=== PATIENT | female | born 1990 | race Caucasian/White ===

== ENCOUNTER 2017-01-18 08:35 | Emergency (ER) | payer BC ==
[~2017-01-18] VITALS: Ht 170.2 cm; Wt 95.3 kg
--- NOTE | 2017-01-18 09:30 | PD ---
HPI Travel History International Travel<30 Days: No Contact w/Intl Traveler<30Days: [place] of Country Traveled to: friend to [place] Known Affected Area: No History of Present Illness HPI This patient is a 26-year-old 1 para 0 EDC is March 26, 2017 presently at 30 weeks and 3 days she presents with the chief complaint of possible rupture of membranes She states she was awoken this morning at 2 AM felt wet between her legs she is coming in and be checked occasional tightening which has been going on throughout the soft left of blood on her underwear baby is active care with Dr. Henriquez course is unremarkable other than the baby is measuring big Patient admits to sexual intercourse last night History Past Medical History Narrative Medical No known drug allergies no major medical problems Obstetric History Obstetric History First Past Surgical History Surgical History: No Previous Surgery Family History Family History: Negative Social History Alcohol Use: No Tobacco Use: No Substance Abuse: No Allergies-Medications (Allergen,Severity, Reaction): Coded Allergies: No Known Allergies (Unverified , 01/18/17) Review of Systems Gastrointestinal: Abdominal Pain (occasional tightening as per history of present illness) Genitourinary: Discharge (watery discharge) Physical Exam Narrative GENERAL: Well-nourished, well-developed patient. Alert oriented 3 and cooperative in no acute distress CARDIOVASCULAR: Regular rate and rhythm without murmurs, gallops, or rubs. RESPIRATORY: Breath sounds equal bilaterally. No accessory muscle use. ABDOMEN/GI: Abdomen soft, non-tender, bowel sounds present, no rebound, no guarding consistent with 30 weeks soft no palpable contractions no epigastric or right upper quadrant tenderness Gravid to [-] weeks size 30 weeks Fundal Height: [-] GENITOURINARY: Speculum exam is done no gross fluid seen thin white discharge amnisure is negative External Genitalia: intact and normal in appearance BUS glands: [-] Cervix: [-] Posterior Dilatation: [-] Closed Effacement: [-] Station: [-] Ballotable Presentation: [-] Vertex Membranes: [intact Uterine Contractions: [-]0 FHT's: Category: [-] 1 Baseline: [-] 140 Reactive: [-] + Variability: [-] Moderate Decels: [-] 0 EXTREMITIES: No cyanosis or edema. NEUROLOGICAL: Awake and alert. Motor and sensory grossly within normal limits. Five out of 5 muscle strength in all muscle groups. Normal speech. Data Data Vital Signs Reviewed: Yes (blood pressures 124/73 pulse is 95) Orders Vital Signs (Adult) .ON ADMISSION (01/18/17 09:21) [facility] Medical Record Reviewed: No (no records available) Interpretation(s) 26-year-old 1 para 0 at 30 weeks and 3 days No clinical evidence of ruptured membranes Not in labor Plan After appropriate monitoring Discharge home Signs of labor reviewed kick count Keep appointment with Dr. Henriquez on Physician Communication Spoke with Dr. Ibrahim She agrees with evaluation and management Tracing reviewed with Dr. Ibrahim she agrees with discharge Diagnosis Diagnosis: Primary Impression: Suspected problem with amniotic cavity and membrane not found Additional Impression: Premature of fewer than 30 weeks gestation Disposition: 01 DISCHARGE HOME Condition: Stable Dilcia Genao MD Jan 18, 2017 09:30
== END 2017-01-18 10:03 | disposition home or self-care (01) ==
LOC: HOBED 08:35
DX: O26.893 Other specified pregnancy related conditions, third trimester (principal); Z3A.30 30 weeks gestation of pregnancy
CPT/HCPCS: 84112; 99283

== ENCOUNTER 2017-04-04 18:28 | Inpatient (IN) | payer BC ==
[~2017-04-04] VITALS: Ht 170.2 cm; Wt 97.7 kg
[2017-04-04 20:24] VITALS: BP 142/93; PULSE 99; TEMP 98.3
[2017-04-04 20:30] VITALS: RESP 18
[2017-04-04] MEDS ORDERED: LACTATED RINGER'S 1000 ML BOLUS IV PRN (20:30)
[2017-04-04] MEDS ORDERED: NS 1000 ML IV PRN (20:30)
[2017-04-04] MEDS ORDERED: NS 500 ML BOLUS IV PRN (20:30)
[2017-04-04] MEDS: LACTATED RINGER'S 1000 ML IV SCH (20:30)
[2017-04-04] MEDS: LACTATED RINGER'S 1000 ML INJ 1,000 ML IV SCH (20:45)
[2017-04-04] MEDS ORDERED: CITRIC ACID-SODIUM CITRATE LIQ 30 ML UDC PO SCH (20:45)
[2017-04-04] MEDS ORDERED: LIDOCAINE HCL 1% 50 ML VIAL INFIL PRN (20:45)
[2017-04-04] MEDS ORDERED: ONDANSETRON HCL 4 MG/2 ML VIAL IV PRN (20:45)
[2017-04-04] MEDS ORDERED: LIDOCAINE HCL 1% 50 ML VIAL I-DERMAL PRN (20:45)
[2017-04-04] MEDS ORDERED: DINOPROSTONE 10 MG INSERT - REMOVE AT 0600 VAGINAL ONE (20:45)
[2017-04-04] MEDS ORDERED: MINERAL OIL 10 ML VIAL TOPICAL PRN (20:45)
[2017-04-04] MEDS ORDERED: OXYTOCIN 30 UNITS 500ML PREMIX IV ONE (20:45)
[2017-04-04] MEDS ORDERED: NS 1000 ML OTHER PRN (20:45)
[2017-04-04 22:08] LABS: BACTERIA, URINE MOD /hpf; BLOOD, URINE NEG (NEG); CALCIUM OXALATE CRYSTALS,URINE RARE /hpf; COMMENT (UR) CULTURE INDICATED; CULTURE IF INDICATED CULTURE INDICATED; GLUCOSE,URINE 300 mg/dL (NEG); KETONE, URINE 10 mg/dL (NEG); MUCUS URINE FEW /lpf (OCC); NITRITE,URINE NEG (NEG); SQUAMOUS EPITHELIAL CELL URINE 2 /hpf (0-5); URIC ACID CRYSTALS, URINE RARE /hpf; URINE COLOR YELLOW (YELLW/STRAW)
[2017-04-04 22:28] LABS: AUTOMATED NEUTROPHIL # 11.4 TH/MM3 (1.8-7.7); BASOPHIL % 0.3 % (0.0-2.0); EOSINOPHIL # 0.1 TH/MM3 (0-0.4); EOSINOPHIL % 0.6 % (0.0-4.0); HEMATOCRIT 37.2 % (35.0-46.0); HEMO FLAGS DIFF FINAL; LYMPH % 12.8 % (9.0-44.0); LYMPHOCYTE # 1.8 TH/MM3 (1.0-4.8); MEAN CELL VOLUME 86.1 FL (80.0-100.0); MEAN CORPUSCULAR HEMOGLOBIN 29.2 PG (27.0-34.0); MEAN CORPUSCULAR HGB CONC 33.9 % (32.0-36.0); MONO % 4.5 % (0.0-8.0); NEUT % 81.8 % (16.0-70.0); PLATELET COUNT 318 TH/MM3 (150-450); RED BLOOD COUNT 4.32 MIL/MM3 (4.00-5.30); WHITE BLOOD COUNT 13.9 TH/MM3 (4.0-11.0)
[2017-04-04 22:59] VITALS: BP 142/97; PULSE 91; RESP 18; TEMP 98.3
[2017-04-04 23:24] LABS: ALT (GPT) 18 U/L (10-53); ANION GAP 13 MEQ/L (5-15); AST (GOT) 9 U/L (15-37); BICARBONATE 20.6 MEQ/L (21.0-32.0); BLOOD UREA NITROGEN 9 MG/DL (7-18); CHLORIDE 106 MEQ/L (98-107); GLOMERULAR FILTRATION RATE 155 ML/MIN (>89); POTASSIUM 3.1 MEQ/L (3.5-5.1); SODIUM (NA) 140 MEQ/L (136-145)
[2017-04-04 23:26] LABS: ALKALINE PHOSPHATASE 167 U/L (45-117); TOTAL BILIRUBIN ADULT 0.2 MG/DL (0.2-1.0)
[2017-04-05] VITALS (85 sets, daily range): BP systolic 104–218; BP diastolic 53–190; PULSE 75–147; RESP 16–20; TEMP 97.6–99.4; O2SAT 97
[2017-04-05] MEDS ORDERED: OXYTOCIN 30 UNITS-500ML PREMIX 500 ML ONE (06:52)
[2017-04-05] MEDS ORDERED: OXYTOCIN 30 UNITS/NS 500ML PREMIX IV SCH (10:00)
[2017-04-05] MEDS ORDERED: fentaNYL 2MCG-BUPIV 0.125% INJ 100 ML ONE (10:21)
[2017-04-05] MEDS ORDERED: NIFEdipine 10 MG CAP PO ONE (10:30)
[2017-04-05] MEDS: LACTATED RINGER'S 1000 ML INJ 1,000 ML IV SCH ×2 (10:30→12:45)
[2017-04-05] MEDS ORDERED: NIFEdipine 30 MG SUSTAINED RELEASE TAB PO ONE (11:45)
[2017-04-05] MEDS: LACTATED RINGER'S 1000 ML IV SCH ×4 (12:30→20:30)
[2017-04-05] MEDS ORDERED: NO SYSTEM NARCOTICS PRN (14:45)
[2017-04-05] MEDS ORDERED: ePHEDrine/NS 25 MG/5 ML SYR IV PRN (14:45)
[2017-04-05] MEDS ORDERED: DO NOT ADMINISTER ANTICOAGULANTS PRN (14:45)
[2017-04-05] MEDS: fentaNYL 2MCG-BUPIV 0.125% 100 ML EPIDURAL SCH ×2 (16:32→17:56)
[2017-04-05] MEDS ORDERED: LACTATED RINGER'S 1000 ML IV ONE (20:15)
[2017-04-05] MEDS ORDERED: ceFAZolin 2 GM PREMIX 50 ML IV SCH (20:15)
[2017-04-05] MEDS ORDERED: OXYTOCIN 10 UNIT/ML AMP ONE (20:25)
--- NOTE | 2017-04-05 20:35 | PD.LABORPN ---
Subjective Subjective pain controlled with epidural Objective Vital Signs Vital Signs Date Time Temp Pulse Resp B/P (MAP) Pulse Ox O2 Delivery O2 Flow Rate FiO2 04/05/17 17:56 16 04/05/17 15:45 18 04/05/17 15:40 108 04/05/17 15:35 101 04/05/17 15:30 104 131/71 (91) 04/05/17 15:25 105 04/05/17 15:20 121 04/05/17 15:15 111 04/05/17 15:10 111 04/05/17 15:05 107 04/05/17 15:00 109 141/83 (102) 04/05/17 14:40 104 04/05/17 14:35 98 04/05/17 14:30 98 04/05/17 14:30 99 130/85 (100) 04/05/17 14:14 17 04/05/17 14:10 100 04/05/17 14:00 108 04/05/17 13:41 18 04/05/17 13:40 134/82 (99) 04/05/17 13:40 118 04/05/17 13:35 119 135/78 (97) 04/05/17 13:35 99 04/05/17 13:31 107 134/67 (89) 04/05/17 13:30 110 04/05/17 13:25 108 04/05/17 13:21 108 128/83 (98) 04/05/17 13:20 104 04/05/17 13:15 99 135/77 (96) 04/05/17 13:15 108 04/05/17 12:40 103 132/78 (96) 04/05/17 12:40 115 04/05/17 12:35 110 139/77 (97) 04/05/17 12:35 108 04/05/17 12:30 101 04/05/17 12:30 121 147/84 (105) 04/05/17 12:25 95 125/70 (88) 04/05/17 12:25 93 Objective Pelvic Exam: Cervix: [-] /-2 Dilatation: [-] Effacement: [-] Station: [-] Presentation: [-] vtx Membranes: [intact or ruptured] Uterine Contractions: [-] FHT's: Category: [-] 1 Baseline: [-] 140s Reactive: [-] Variability: [-] Decels: [-] Weeks Gestation: 41 Gest Age Assessed Date: Apr 05, 2017 Gest Age Assessed Time: 09:36 Pt started active labor?: Yes Active labor start date: Apr 05, 2017 Active labor start time: 09:30 Medical induction of labor?: Yes Medical induction start date: Apr 04, 2017 Medical induction start time: 18:00 Artificial rupture of membrane: Yes Artificial ROM date: Apr 05, 2017 Artifical ROM time: 09:56 Assessment/Plan Problem List: (1) Gestational hypertension ICD Codes: O13.9 - Gestational [-induced] hypertension without significant proteinuria, unspecified trimester Status: Acute Qualifiers: Qualified Codes: O13.3 - Gestational [-induced] hypertension without significant proteinuria, third trimester (2) Failure of descent in labor, delivered, current hospitalization ICD Codes: O62.2 - Other uterine inertia Plan: reviewed need for primary . r/b/alt reviewed. all questions answered. Katlin Ibrahim MD Apr 05, 2017 20:35
[2017-04-05] MEDS ORDERED: MORPHINE SULFATE PF 5 MG/10 ML VIAL ONE (21:37)
[2017-04-05] MEDS ORDERED: ONDANSETRON HCL 4 MG/2 ML VIAL ONE (21:37)
[2017-04-05] MEDS ORDERED: SIMETHICONE 80 MG CHEWABLE TAB PO PRN (21:45)
[2017-04-05] MEDS ORDERED: OXYTOCIN 10 UNIT/ML AMP XX PRN (21:45)
[2017-04-05] MEDS ORDERED: OXYTOCIN 30 UNITS-500ML PREMIX 500 ML IV ONE (21:45)
[2017-04-05] MEDS ORDERED: ZOLPIDEM TARTRATE 5 MG TAB PO PRN (21:45)
[2017-04-05] MEDS ORDERED: oxyCODONE/ACETAMINOPHEN 5 MG/325 MG TAB PO PRN ×2 (21:45)
[2017-04-05] MEDS ORDERED: SODIUM CHLORIDE 0.9% FLUSH 10 ML FLUSH IV FLUSH PRN (21:45)
[2017-04-05] MEDS ORDERED: KETOROLAC TROMETHAMINE 60 MG/2 ML (IM) VIAL IM PRN ×2 (21:45)
[2017-04-05] MEDS ORDERED: OXYTOCIN 10 UNIT/ML AMP XX ONE (21:45)
[2017-04-05] MEDS ORDERED: ACETAMINOPHEN 1000 MG/100 ML VIAL IV ONE (21:45)
[2017-04-05] MEDS ORDERED: ONDANSETRON HCL 4 MG/2 ML VIAL IV PUSH PRN (21:45)
[2017-04-05] MEDS ORDERED: LIDOCAINE 2%/EPINEPHrine PF 1:200,000 20ML SDV OTHER ONE (21:57)
[2017-04-05] MEDS ORDERED: LACTATED RINGER'S 1,000 ML BAG IV ONE (21:58)
[2017-04-05] MEDS ORDERED: EPIDURAL-DIPHENHYDRAMINE HCL 50 MG CAP PO PRN (22:00)
[2017-04-05] MEDS ORDERED: EPIDURAL-DO NOT ADMINISTER ANTICOAGULANTS PRN (22:00)
[2017-04-05] MEDS ORDERED: EPIDURAL-NALOXONE HCL 0.4 MG/ML AMP IV PRN (22:00)
[2017-04-05] MEDS ORDERED: EPIDURAL-NO SYSTEMIC NARCOTICS PRN (22:00)
[2017-04-05] MEDS ORDERED: ACETAMINOPHEN 1000 MG/100 ML VIAL ONE (22:00)
[2017-04-05] MEDS ORDERED: EPIDURAL-DIPHENHYDRAMINE HCL 50 MG/ML VIAL IV PUSH PRN (22:00)
[2017-04-06 01:23] VITALS: BP 127/68; PULSE 101; RESP 18; TEMP 98.1
[2017-04-06] MEDS ORDERED: LACTATED RINGER'S 1000 ML INJ 1,000 ML IV SCH (02:41)
[2017-04-06 05:20] VITALS: BP 112/62; PULSE 103; RESP 18; TEMP 98.7
[2017-04-06 05:34] LABS: AUTOMATED NEUTROPHIL # 20.9 TH/MM3 (1.8-7.7); BASOPHIL # 0.1 TH/MM3 (0-0.2); BASOPHIL % 0.2 % (0.0-2.0); HEMATOCRIT 35.2 % (35.0-46.0); HEMO FLAGS DIFF FINAL; LYMPH % 5.7 % (9.0-44.0); LYMPHOCYTE # 1.3 TH/MM3 (1.0-4.8); MEAN CELL VOLUME 86.5 FL (80.0-100.0); MEAN CORPUSCULAR HEMOGLOBIN 28.9 PG (27.0-34.0); MEAN CORPUSCULAR HGB CONC 33.4 % (32.0-36.0); MONO % 3.7 % (0.0-8.0); NEUT % 90.4 % (16.0-70.0); PLATELET COUNT 287 TH/MM3 (150-450); RED BLOOD COUNT 4.07 MIL/MM3 (4.00-5.30); RED CELL DISTRIBUTION WIDTH 14.4 % (11.6-17.2); WHITE BLOOD COUNT 23.2 TH/MM3 (4.0-11.0)
[2017-04-06] MEDS: IBUPROFEN 600 MG TAB PO PRN ×2 (05:50→15:44)
[2017-04-06] MEDS ORDERED: OXYTOCIN 30 UNITS-500ML PREMIX 500 ML IV PRN (07:45)
--- NOTE | 2017-04-06 07:56 | MP ---
cc: ZHUBRENDA DATE OF SURGERY: 04/05/2017 PREOPERATIVE DIAGNOSIS 1. Intrauterine at 41+ weeks gestation. 2. Gestational hypertension. 3. Induction of labor. 4. Arrest of descent. POSTOPERATIVE DIAGNOSIS 1. Intrauterine at 41+ weeks gestation. 2. Gestational hypertension. 3. Induction of labor. 4. Arrest of descent. 5. Delivery of a viable male in the occiput posterior presentation. PROCEDURE Primary low transverse section. ANESTHESIA Epidural. DRAINS Kelly to gravity. SPECIMEN Cord blood. COUNTS Correct x2. DISPOSITION Stable in the PACU INDICATION The patient is a 27-year-old, 1, para 0, who presented for induction of labor. The patient received Cervidil followed by Pitocin. The patient quickly progressed to complete; however, was allowed to labor down for approximately an hour and a half and then pushed for nearly 2 hours; however, the vertex did not descend beyond -2 station. Given this the patient was consented for a primary low transverse section. DETAILS OF PROCEDURE Her epidural was re-bolused to accommodate the . A Pfannenstiel skin incision was made approximately two fingerbreadths above the pubic symphysis and carried down to the underlying layer of fascia using Bovie. The fascia was incised in the midline and the incision extended laterally digitally. Klaudia clamps were used to elevate the fascia and rectus muscles were dissected off superiorly and inferiorly. The rectus muscles were in the midline and the peritoneum was tented up and entered sharply. There was a small amount of fluid that was encountered and this was suspicious as to whether it could have been an incidental cystotomy. It did not appear the Kelly catheter was draining well at this point as no urine could be visualized in the bag. A bladder blade was then inserted and surgery was continued. The vesicouterine peritoneum was identified, tented up and entered sharply. The bladder blade was then reinserted. A transverse incision was made on the lower uterine segment just exposing membranes. These were ruptured for clear fluid. The uterine incision was extended laterally digitally. The vertex was noted to be wedged down into the pelvis somewhat. Suction was broken and the vertex was delivered in the occiput posterior presentation. There was noted to be a body cord that was easily reduced as well. Delayed cord clamping was done. Cord blood was obtained. The placenta was removed manually intact with a three-vessel cord and sent for placenta donation. Given the bulky size of the uterus it was difficult to exteriorize. The uterus was cleared of all clot and debris. The uterine incision was repaired using one chromic suture in a running locked fashion. The second layer was placed in an imbricating fashion. After the uterine incision was closed it should be noted that the Kelly catheter was then clamped and retrograde filled with sterile milk. There was no evident cystotomy. The clamp was then removed and by the end of the case the Kelly catheter did have clear yellow urine in it. Once this was done the gutters cleared of all clot and debris. The uterine incision remained hemostatic. The rectus muscles were re-approximated using 0 chromic suture in an interrupted fashion. The fascia was re-approximated using 0 Vicryl suture in a running fashion. The subcutaneous fat was irrigated and made hemostatic, re-approximated using 3-0 chromic and the skin was closed using 3-0 Monocryl suture in a subcuticular fashion. Once this was done all counts were correct and the patient was awakened and taken to the recovery room in stable condition. MD REJI Crenshaw/BT /12:05 AM /7:32 AM MTDJuan
[2017-04-06 08:40] VITALS: BP 109/72; PULSE 103; RESP 18; TEMP 98.2
[2017-04-06 12:27] VITALS: BP_SYST 110; BP_SYST 112; BP_DIAS 67; BP_DIAS 72; PULSE 109; RESP 18; TEMP 98.2
[2017-04-06 15:40] VITALS: BP 111/63; PULSE 97; RESP 18; TEMP 98.4
[2017-04-06] MEDS: DOCUSATE SODIUM 50 MG/SENNA 8.6 MG TAB PO PRN (15:44)
[2017-04-06] MEDS ORDERED: DIPHTH/TETANUS/ACEL PERTUSSIS (BOOSTER) 0.5 ML VIAL/PFS IM ONE (16:00)
[2017-04-06] MEDS ORDERED: MEASLES, MUMPS, RUBELLA VACCINE 0.5 ML VIAL SQ ONE (16:00)
[2017-04-06] MEDS: LACTATED RINGER'S 1000 ML IV SCH ×2 (19:53→22:55)
[2017-04-06] MEDS: LACTATED RINGER'S 1000 ML INJ 1,000 ML IV SCH (19:53)
[2017-04-06] MEDS: SODIUM CHLORIDE 0.9% FLUSH 10 ML FLUSH IV FLUSH SCH (20:20)
--- NOTE | 2017-04-06 22:04 | HHI.OB ---
Subjective Post Operative Day: 1 Remarks pain controlled, mod lochia, saurav po, +void/flatus Objective Vitals/I&O Vital Signs Date Time Temp Pulse Resp B/P (MAP) Pulse Ox O2 Delivery O2 Flow Rate FiO2 04/06/17 15:40 97 18 111/63 (79) 04/06/17 15:40 98.4 04/06/17 12:27 110/72 (85) 04/06/17 12:27 98.2 109 18 112/67 (82) 04/06/17 08:40 98.2 103 18 109/72 (84) 04/06/17 05:20 98.7 103 18 04/06/17 05:20 112/62 (79) 04/06/17 01:23 98.1 101 18 127/68 (87) 04/05/17 22:41 98.1 04/05/17 22:33 87 18 135/60 (85) 04/05/17 22:33 97 04/05/17 22:15 86 18 117/61 (79) Result Diagram: 04/06/17 0502 04/04/17 1900 Objective Remarks GENERAL: Well-nourished, well-developed patient. CARDIOVASCULAR: Regular rate and rhythm without murmurs, gallops, or rubs. RESPIRATORY: Breath sounds equal bilaterally. No accessory muscle use. ABDOMEN/GI: Abdomen soft, non-tender, bowel sounds present. Incision: Clean, dry and intact. Fundus: Firm, non-tender at umbilicus. GENITOURINARY: Light to moderate bleeding. EXTREMITIES: No cyanosis or edema, non-tender, without signs of DVT. Medications and IVs Current Medications Medications (Trade) Dose Ordered Sig/Candace Route Start Time Stop Time Status Last Admin Lactated Ringer's 1,000 ml @ 125 mls/hr Q8H IV 04/04/17 20:30 04/05/17 16:26 Lactated Ringer's 1,000 ml @ 3,000 mls/hr BOLUS PRN IV 04/04/17 20:30 Sodium Chloride 500 ml @ 1,000 mls/hr BOLUS PRN IV 04/04/17 20:30 Sodium Chloride 1,000 ml @ 100 mls/hr Q10H PRN IV 04/04/17 20:30 (Bicitra Liq) 30 ml STAMP PAD FINISHER PO 04/04/17 20:45 04/07/17 20:44 (Zofran Inj) 4 mg Q6H PRN IV 04/04/17 20:45 (fentaNYL INJ) 50 mcg Q1H PRN IV PUSH 04/04/17 20:45 04/05/17 09:28 (fentaNYL INJ) 100 mcg Q1H PRN IV PUSH 04/04/17 20:45 (Muri-Lube Oil) 10 ml UNSCH PRN TOPICAL 04/04/17 20:45 04/05/17 18:44 Lactated Ringer's 1,000 ml @ 125 mls/hr Q8H IV 04/04/17 20:45 04/05/17 10:30 Sodium Chloride 1,000 ml @ 0 mls/hr UNSCH PRN OTHER 04/04/17 20:45 Oxytocin 500 ml @ 0 mls/hr TITRATE IV 04/05/17 10:00 04/05/17 07:06 Fentanyl/ Bupivacaine HCl 100 ml @ 0 mls/hr TITRATE EPIDURAL 04/05/17 14:45 04/05/17 17:56 Lactated Ringer's 1,000 ml @ 150 mls/hr Q6H40M IV 04/05/17 20:15 Cefazolin Sodium/ Dextrose 50 ml @ 100 mls/hr STAMP PAD FINISHER IV 04/05/17 20:15 04/08/17 20:14 04/05/17 20:19 Lactated Ringer's 1,000 ml @ 100 mls/hr Q10H IV 04/06/17 02:41 04/06/17 22:40 Oxytocin 500 ml @ 100 mls/hr UNSCH X1 PRN IV 04/06/17 07:45 04/07/17 07:44 (NS Flush) 2 ml BID IV FLUSH 04/06/17 09:00 (NS Flush) 2 ml UNSCH PRN IV FLUSH 04/05/17 21:45 (Mylicon Chew) 80 mg QID PRN PO 04/05/17 21:45 (Motrin) 600 mg Q6H PRN PO 04/05/17 21:45 04/06/17 15:44 (Percocet 5-325 Mg) 1 tab Q4H PRN PO 04/05/17 21:45 (Percocet 5-325 Mg) 2 tab Q4H PRN PO 04/05/17 21:45 (Gladys-Colace) 2 tab Q12H PRN PO 04/05/17 21:45 04/06/17 15:44 (Ambien) 5 mg HS PRN PO 04/05/17 21:45 (Zofran Inj) 4 mg Q6H PRN IV PUSH 04/05/17 21:45 Assessment/Plan Problem List: (1) Gestational hypertension ICD Codes: O13.9 - Gestational [-induced] hypertension without significant proteinuria, unspecified trimester Status: Acute Qualifiers: Qualified Codes: O13.3 - Gestational [-induced] hypertension without significant proteinuria, third trimester Plan: bps stable without meds s/p delivery (2) Failure of descent in labor, delivered, current hospitalization ICD Codes: O62.2 - Other uterine inertia Plan: routine po care cbc stable Katlin Ibrahim MD Apr 06, 2017 22:04
[2017-04-06 22:05] VITALS: BP 102/69; PULSE 91; RESP 20; TEMP 98.8
[2017-04-07] MEDS: IBUPROFEN 600 MG TAB PO PRN ×2 (00:06→06:25)
[2017-04-07] MEDS: LACTATED RINGER'S 1000 ML IV SCH ×4 (04:30→12:30)
[2017-04-07] MEDS: LACTATED RINGER'S 1000 ML INJ 1,000 ML IV SCH ×2 (04:45→12:45)
[2017-04-07] MEDS: DOCUSATE SODIUM 50 MG/SENNA 8.6 MG TAB PO PRN (06:24)
[2017-04-07 08:10] VITALS: BP 113/69; PULSE 90; RESP 18; TEMP 97.9
[2017-04-07] MEDS: SODIUM CHLORIDE 0.9% FLUSH 10 ML FLUSH IV FLUSH SCH (09:00)
--- NOTE | 2017-04-07 09:09 | HHI.OB ---
Subjective Post Day: 2 Remarks doing well Objective Vitals/I&O Vital Signs Date Time Temp Pulse Resp B/P (MAP) Pulse Ox O2 Delivery O2 Flow Rate FiO2 04/06/17 22:05 98.8 91 20 102/69 (80) 04/06/17 15:40 97 18 111/63 (79) 04/06/17 15:40 98.4 04/06/17 12:27 110/72 (85) 04/06/17 12:27 98.2 109 18 112/67 (82) Objective Remarks GENERAL: Well-nourished, well-developed patient. ABDOMEN/GI: Abdomen soft, non-tender. Fundus: Firm, non-tender at umbilicus. GENITOURINARY: Light to moderate bleeding. EXTREMITIES: No cyanosis or edema, non-tender, without signs of DVT. Medications and IVs Current Medications Medications (Trade) Dose Ordered Sig/Candace Route Start Time Stop Time Status Last Admin Lactated Ringer's 1,000 ml @ 125 mls/hr Q8H IV 04/04/17 20:30 04/05/17 16:26 Lactated Ringer's 1,000 ml @ 3,000 mls/hr BOLUS PRN IV 04/04/17 20:30 Sodium Chloride 500 ml @ 1,000 mls/hr BOLUS PRN IV 04/04/17 20:30 Sodium Chloride 1,000 ml @ 100 mls/hr Q10H PRN IV 04/04/17 20:30 (Bicitra Liq) 30 ml CHANNEL ACCOUNT MANAGER PO 04/04/17 20:45 04/07/17 20:44 (Zofran Inj) 4 mg Q6H PRN IV 04/04/17 20:45 (fentaNYL INJ) 50 mcg Q1H PRN IV PUSH 04/04/17 20:45 04/05/17 09:28 (fentaNYL INJ) 100 mcg Q1H PRN IV PUSH 04/04/17 20:45 (Muri-Lube Oil) 10 ml UNSCH PRN TOPICAL 04/04/17 20:45 04/05/17 18:44 Lactated Ringer's 1,000 ml @ 125 mls/hr Q8H IV 04/04/17 20:45 04/05/17 10:30 Sodium Chloride 1,000 ml @ 0 mls/hr UNSCH PRN OTHER 04/04/17 20:45 Oxytocin 500 ml @ 0 mls/hr TITRATE IV 04/05/17 10:00 04/05/17 07:06 Fentanyl/ Bupivacaine HCl 100 ml @ 0 mls/hr TITRATE EPIDURAL 04/05/17 14:45 04/05/17 17:56 Lactated Ringer's 1,000 ml @ 150 mls/hr Q6H40M IV 04/05/17 20:15 Cefazolin Sodium/ Dextrose 50 ml @ 100 mls/hr CHANNEL ACCOUNT MANAGER IV 04/05/17 20:15 04/08/17 20:14 04/05/17 20:19 (NS Flush) 2 ml BID IV FLUSH 04/06/17 09:00 (NS Flush) 2 ml UNSCH PRN IV FLUSH 04/05/17 21:45 (Mylicon Chew) 80 mg QID PRN PO 04/05/17 21:45 (Motrin) 600 mg Q6H PRN PO 04/05/17 21:45 04/07/17 06:25 (Percocet 5-325 Mg) 1 tab Q4H PRN PO 04/05/17 21:45 (Percocet 5-325 Mg) 2 tab Q4H PRN PO 04/05/17 21:45 (Gladys-Colace) 2 tab Q12H PRN PO 04/05/17 21:45 04/07/17 06:24 (Ambien) 5 mg HS PRN PO 04/05/17 21:45 (Zofran Inj) 4 mg Q6H PRN IV PUSH 04/05/17 21:45 Assessment/Plan Problem List: (1) Gestational hypertension ICD Codes: O13.9 - Gestational [-induced] hypertension without significant proteinuria, unspecified trimester Status: Acute Qualifiers: Qualified Codes: O13.3 - Gestational [-induced] hypertension without significant proteinuria, third trimester Plan: bps stable without meds s/p delivery (2) Failure of descent in labor, delivered, current hospitalization ICD Codes: O62.2 - Other uterine inertia Plan: routine po care cbc stable Discharge Planning doing Nas Lezama MD Apr 07, 2017 09:08
--- NOTE | 2017-04-07 09:10 | HHI.DCPOC ---
Discharge Care Plan Diagnosis: (1) Failure of descent in labor, delivered, current hospitalization Report Symptoms to Your Doctor -Temperature above 100.5 degrees -Redness, of incision or excessive or foul smelling drainage -Unusual pain or calf pain -Increased vaginal bleeding -Painful or difficulty urinating -Feelings of extreme sadness or anxiety after 2 weeks Goals to Promote Your Health * To prevent worsening of your condition and complications * To maintain your health at the optimal level Directions to Meet Your Goals Take your medications as prescribed Follow your dietary instruction Follow activity as directed Ensure plenty of rest for recovery Drink fluids for hydration Keep your appointments as scheduled Take your immunizations and boosters as scheduled If your symptoms worsen call your PCP, if no PCP go to Urgent Care Center or Emergency Room Smoking is Dangerous to Your Health. Avoid second hand smoke Call the 24-hour crisis hotline for domestic abuse at Nas Longoria MD Apr 07, 2017 09:10
[2017-04-07] MEDS ORDERED: OXYC1TAB63 PO (09:12)
--- NOTE | 2017-04-07 09:14 | HHI.DS ---
Admission Date Apr 04, 2017 at 18:28 Discharge Date: Apr 07, 2017 Admitting Diagnosis Diagnosis: (1) Failure of descent in labor, delivered, current hospitalization ICD Codes: O62.2 - Other uterine inertia : Primary Reason: arrest of descent Infant: Male, Single Brief History hypertension induction Hospital Course CS for arrest of descent Pt Condition on Discharge: Good Discharge Disposition: Discharge Home Discharge Instructions Diet Instructions: As Tolerated, No Restrictions Activities You Can Perform: Pelvic Rest Activities to Avoid: Driving for 24 hrs Follow up Referrals: [employer] - 2 Weeks @ [facility] with Katlin Ibrahim MD New Medications: Oxycodone-Acetaminophen (Oxycodone-Acetaminophen) 5-325 mg Tab 2 TAB PO Q4H PRN for PAIN SCALE 6 TO 10 for 7 Days, #30 TAB 0 Refills Nas Longoria MD Apr 07, 2017 09:13
== END 2017-04-07 14:12 | disposition home or self-care (01) | DRG 766 ==
LOC: H2EB 18:28 → H1EA 04-05 22:54
PROVIDERS: ADMIT Obstetrics & Gynecology; ATTEND Obstetrics & Gynecology
PROC: 3E033VJ Introduction of Other Hormone into Peripheral Vein, Percutaneous Approach (ICD-10-PCS; 2017-04-04)
PROC: 3E0P7GC Introduction of Other Therapeutic Substance into Female Reproductive, Via Natural or Artificial Opening (ICD-10-PCS; 2017-04-04)
PROC: 10D00Z1 Extraction of Products of Conception, Low, Open Approach (ICD-10-PCS; principal; 2017-04-05)
PROC: 10907ZC Drainage of Amniotic Fluid, Therapeutic from Products of Conception, Via Natural or Artificial Opening (ICD-10-PCS; 2017-04-05)
DX: O13.4 Gestational [pregnancy-induced] hypertension without significant proteinuria, complicating childbirth (principal); O32.4XX0 Maternal care for high head at term, not applicable or unspecified; O69.82X0 Labor and delivery complicated by other cord entanglement, without compression, not applicable or unspecified; Z37.0 Single live birth; Z3A.41 41 weeks gestation of pregnancy
CPT/HCPCS: 80053; 81001; 85025; 86850; 86900; 86901; 87086; 90715; J0131; J0690; J2274; J2405; J2590; J3010; J7120